=== PATIENT | female | born 1995 | race Caucasian/White ===

== ENCOUNTER 2023-01-10 16:23 | Emergency (ER) | payer OTHER, MEDICAID ==
[~2023-01-10] VITALS: Ht 167.6 cm; Wt 86.1 kg
== END 2023-01-10 18:10 | disposition home or self-care (01) ==
LOC: ED 16:23 → EDBD 16:23 → ED 18:10
DX: S16.1XXA Strain of muscle, fascia and tendon at neck level, initial encounter (principal); S80.01XA Contusion of right knee, initial encounter; S40.011A Contusion of right shoulder, initial encounter; V59.50XA Passenger in pick-up truck or van injured in collision with unspecified motor vehicles in traffic accident, initial encounter
CPT/HCPCS: 36415; 70450; 71260; 72125; 73030; 73560; 74177; 80053; 84702; 85025; 86850; 86870; 86900; 86901; 99284-25; G0480; Q9967